=== PATIENT | female | born 1975 | race Caucasian/White ===

== ENCOUNTER 2019-04-10 11:02 | Outpatient (CLI) | payer BC, OTHER ==
[2018-01-03 13:13] VITALS: O2SAT 99
== END 2019-04-10 11:03 | disposition home or self-care (01) ==
LOC: CONVCARE 11:02
PROVIDERS: ATTEND Orthopaedic Surgery
DX: S82.61XD Displaced fracture of lateral malleolus of right fibula, subsequent encounter for closed fracture with routine healing (principal)
CPT/HCPCS: 73610